=== PATIENT | male | born 1990 | race African-American/Black ===

== ENCOUNTER 2021-02-04 21:21 | Emergency (ER) | payer MEDICAID ==
[~2021-02-04] VITALS: Ht 175.3 cm; Wt 73.0 kg
[2021-02-04 22:06] VITALS: BP 140/90
[2021-02-04] MEDS ORDERED: IBUPROFEN 600MG TABLET PO STA (22:59)
[2021-02-04] MEDS ORDERED: CLAR10 PO (23:06)
[2021-02-04] MEDS ORDERED: NAPR-681 PO (23:06)
[2021-02-04] MEDS ORDERED: FLUT9.9S BOTHNSTRLS (23:06)
== END 2021-02-04 23:19 | disposition home or self-care (01) ==
LOC: ER 21:21
DX: H92.03 Otalgia, bilateral (principal); H69.83 Other specified disorders of Eustachian tube, bilateral
CPT/HCPCS: 99283

== ENCOUNTER 2021-04-09 09:06 | Emergency (ER) | payer MEDICAID ==
[~2021-04-09] VITALS: Ht 175.3 cm; Wt 74.0 kg
[~2021-04-09 09:06] MED LIST: CLAR10 PO; FLUT9.9S BOTHNSTRLS; NAPR-681 PO
[2021-04-09 09:14] VITALS: BP 134/80
== END 2021-04-09 09:26 | disposition left against medical advice (07) ==
LOC: ER 09:06
DX: Z53.21 Procedure and treatment not carried out due to patient leaving prior to being seen by health care provider (principal)

== ENCOUNTER 2023-02-20 07:16 | Emergency (ER) | payer MEDICAID, OTHER ==
[~2023-02-20] VITALS: Ht 180.3 cm; Wt 83.0 kg
[2023-02-20 07:25] VITALS: TEMP 98.2; O2SAT 100
[2023-02-20] MEDS ORDERED: KETOROLAC 60MG/2ML VIAL IM ONE (09:30)
[2023-02-20 09:56] LABS: HEMATOCRIT 37.5 % (42.0-52.0); HEMOGLOBIN 12.3 g/dL (14.0-18.0); MEAN CORPUSCULAR HEMOGLOBIN 26.1 pg (28.0-32.0); MEAN CORPUSCULAR VOLUME 79.2 fL (80.0-94.0); PLATELET 155 x1000/uL (130-400); RED BLOOD CELL COUNT 4.73 mill/uL (4.7-6.1); RED CELL DISTRIBUTION WIDTH 15.4 % (11.6-14.6); WHITE BLOOD COUNT 6.7 x1000/uL (4.5-11.0)
[2023-02-20 10:02] LABS: CHLORIDE 109 mEq/L (98-107); INDEX HEMOLYSI 1 (1-3); INDEX ICTERIC 1 (1-4); INDEX LIPEMIC 1 (1-3); POTASSIUM 4.3 mEq/L (3.5-5.1); SODIUM 137 mEq/L (136-145)
[2023-02-20 10:09] LABS: ALANINE AMINOTRANSFERASE 52 IU/L (13-61); ALBUMIN 3.8 g/dL (3.4-5.0); ASPARTATE AMINOTRANSFERASE 39 IU/L (15-37); BILIRUBIN TOTAL 0.5 mg/dL (0.1-1.0); CALCIUM 8.3 mg/dL (8.5-10.1); CARBON DIOXIDE 28 mEq/L (21-32); CREATINE KINASE 588 IU/L (39-308); CREATININE 0.8 mg/dL (0.6-1.3); GLUCOSE 82 mg/dL (70-105); PROTEIN TOTAL 7.3 g/dL (6.0-8.3); UREA NITROGEN BLOOD 12 mg/dL (7-21)
[2023-02-20 10:40] LABS: ACETAMINOPHEN <2 ug/mL ug/mL (10-30); ETHANOL BLOOD < 10 mg/dL (<10)
[2023-02-20 15:47] VITALS: BP 109/63; PULSE 86; RESP 18
== END 2023-02-20 16:10 | disposition short-term general hospital (02) ==
LOC: ER 07:16 → CANBEDREQ 13:08 → ER 16:10
DX: M79.672 Pain in left foot (principal); M79.671 Pain in right foot
CPT/HCPCS: 80053; 80307; 80329; 80320; 82550; 85027; 36415; 73610; 73630; 29515; 96372; 99285; J1885; Z7610; G0480